=== PATIENT | female | born 1945 | race Two or more races ===

== ENCOUNTER 2020-12-15 18:14 | Emergency (ER) | payer OTHER ==
[~2020-12-15] VITALS: Ht 157.5 cm; Wt 117.5 kg
--- NOTE | 2020-12-15 18:22 | NUR ---
ALVARO RATu From Home "Fell down 10d ago trip/fall-landed R knee/side +Bruising. Pain now worse cant walk". AAO x3. In room air and denies SOB. Respiration regular and unlabored. The patient is attached on a monitor. Warm blanket provided for comfort. Waiting to be seen by
[2020-12-15] MEDS: HYDROCODONE/APAP 10/325MG TABLET PO ONE (19:16)
[2020-12-15] MEDS ORDERED: HYDROCODONE/APAP 10/325MG TABLET ONE (19:16)
[2020-12-15] MEDS ORDERED: DOCU-141 PO (19:17)
[2020-12-15] MEDS ORDERED: TRAM50TA2 PO (19:17)
[2020-12-15 19:48] VITALS: BP 137/78
--- NOTE | 2020-12-15 19:48 | NUR ---
Patient discharged to home in stable condition. Written and verbal after care instructions given. Patient verbalizes understanding of instruction.
== END 2020-12-15 19:48 | disposition home or self-care (01) ==
LOC: ER 18:16
DX: S80.11XA Contusion of right lower leg, initial encounter (principal); M25.461 Effusion, right knee; Z79.01 Long term (current) use of anticoagulants; E66.01 Morbid (severe) obesity due to excess calories; Z68.42 Body mass index [BMI] 45.0-49.9, adult; Z86.718 Personal history of other venous thrombosis and embolism; W18.39XA Other fall on same level, initial encounter; Y93.89 Activity, other specified; Y92.89 Other specified places as the place of occurrence of the external cause; Y99.8 Other external cause status
CPT/HCPCS: 73564-TC; 73590-TC; 93971-TC

== ENCOUNTER 2022-06-24 15:35 | Inpatient (IN) | payer MEDICARE, OTHER ==
[~2022-06-24] VITALS: Ht 162.6 cm; Wt 104.3 kg
[~2022-06-24 15:35] MED LIST: DOCU-141 PO; TRAM50TA2 PO
--- NOTE | 2022-06-24 15:46 | NUR ---
, c/o R knee pain 9/10 ps while in the shower. PLACED ON BED, AAOX4, BREATHING EVEN AND UNLABORED.
--- NOTE | 2022-06-24 16:30 | NUR ---
AT BED SIDE
--- NOTE | 2022-06-24 17:21 | NUR ---
NO SWALLEN NO DIFORMITY
[2022-06-24 17:22] LABS: BASOPHILS % (AUTO) 0.4 % (0.0-2.0); EOSINOPHILS % (AUTO) 1.2 % (0.0-6.0); HEMATOCRIT 41 % (33-45); HEMOGLOBIN 13.5 g/dL (11.5-14.8); LYMPHOCYTES # (AUTO) 1.1 K/uL (0.8-4.8); LYMPHOCYTES % (AUTO) 14.3 % (20.0-44.0); MEAN CORPUSCULAR HGB CONC 33 g/dl (31.0-36.0); MEAN CORPUSCULAR VOLUME 93 fL (82-100); MONOCYTES # (AUTO) 0.6 K/uL (0.1-1.30); MONOCYTES % (AUTO) 8.3 % (2.0-12.0); NEUTROPHILS # (AUTO) 5.7 K/uL (1.8-8.9); NEUTROPHILS % (AUTO) 75.8 % (43.0-81.0); PLATELET COUNT (AUTO) 208 K/uL (150-450); RED BLOOD CELL COUNT(AUTO) 4.38 MIL/uL (4.0-5.2); WHITE BLOOD COUNT (AUTO) 7.5 K/uL (4.3-11.0)
--- NOTE | 2022-06-24 17:22 | NUR ---
RESTING AT THIS TIME NO SOB
[2022-06-24 17:30] LABS: CALCIUM, SERUM 9.2 mg/dL (8.5-10.1); CARBON DIOXIDE 31 mmol/L (21-32); CHLORIDE 99 mmol/L (98-107); CREATININE 1.2 mg/dL (0.6-1.3); GLUCOSE 106 mg/dL (74-106); POTASSIUM 3.8 mmol/L (3.5-5.1); SODIUM SERUM 136 mmol/L (136-145); UREA NITROGEN, BLOOD 16 mg/dL (7-18)
[2022-06-24 17:36] LABS: ALANINE AMINOTRANSFERASE 14 U/L (12-78); ALBUMIN 3.4 g/dL (3.4-5.0); ALKALINE PHOSPHATASE 116 U/L (46-116); ASPARTATE AMINOTRANSFERASE 13 U/L (15-37); BILIRUBIN,DIRECT 0.2 mg/dL (0.0-0.2); BILIRUBIN,TOTAL 0.8 mg/dL (0.2-1.0); TOTAL PROTEIN, SERUM 6.9 g/dL (6.4-8.2)
[2022-06-24] MEDS ORDERED: HYDR25TA4 PO (17:52)
[2022-06-24] MEDS ORDERED: LEVE500T20 PO (17:52)
[2022-06-24] MEDS ORDERED: ASPI-1420 PO (17:52)
[2022-06-24] MEDS ORDERED: CLOP75TA15 PO (17:52)
[2022-06-24] MEDS ORDERED: AMLO-212 PO (17:52)
--- NOTE | 2022-06-24 18:19 | NUR ---
demarcus daly sent to lab
--- NOTE | 2022-06-24 18:45 | NUR ---
rocky on rt leg
--- NOTE | 2022-06-24 19:32 | NUR ---
HAND OFF ANA HUNT
--- NOTE | 2022-06-24 22:02 | NUR ---
PANEL PAGED PER DR FERMIN
[2022-06-24] MEDS ORDERED: MAG HYDROX/AL HYDROX/SIMETH 30 ML UDC PO PRN (23:00)
[2022-06-24] MEDS ORDERED: ENOXAPARIN SODIUM 40 MG/0.4 ML DISP.SYRIN SQ SCH (23:00)
[2022-06-24] MEDS ORDERED: ONDANSETRON HCL/PF 4 MG/2 ML VIAL IVP PRN (23:00)
[2022-06-24] MEDS ORDERED: Z GUARD REMEDY 4 OZ OINT TP PRN (23:00)
[2022-06-24] MEDS ORDERED: ACETAMINOPHEN 325 MG TABLET PO PRN (23:00)
[2022-06-24] MEDS ORDERED: LEVETIRACETAM (250 MG) 250 MG TABLET PO SCH (23:00)
--- NOTE | 2022-06-24 23:56 | NUR ---
ROOM 324-1
--- NOTE | 2022-06-25 00:07 | NUR ---
REPORT GIVEN TO PHILLY
--- NOTE | 2022-06-25 00:46 | NUR ---
PT TRANSPORTED TO ROOM 324 VIA [facility] IN STABLE CONDITION
[2022-06-25 00:55] VITALS: BP 123/77
--- NOTE | 2022-06-25 01:06 | NUR ---
RN NOTES; RECEIVED PT FROM ER WITH VEL IN RM 324-1 AAOX4 ABLE TO MAKE NEEDS KNOWN.TAMAR WELL ON RM AIR SATTING 98%, NO SIGN SOB/DISTRESS NOTED,BREATHING EVEN AND UNLABORED,NO COMPLAINE OF PAIN/DISCOMFORT AT THIS TIME,IV ACCESS ON RAC 18G SL,PT ORIENT THE RM AND VERBALLY UNDERSTANDING.SAFETY MEASURED INPLACE,CALL LIGHT WITHIN REACH,BED LOCKED AND LOW POSITION,WILL CONTINUE TO MONITOR.
[2022-06-25 06:09] LABS: BASOPHILS % (AUTO) 0.6 % (0.0-2.0); EOSINOPHILS % (AUTO) 1.4 % (0.0-6.0); HEMATOCRIT 41 % (33-45); HEMOGLOBIN 13.6 g/dL (11.5-14.8); LYMPHOCYTES # (AUTO) 1.3 K/uL (0.8-4.8); LYMPHOCYTES % (AUTO) 17.4 % (20.0-44.0); MEAN CORPUSCULAR HGB CONC 34 g/dl (31.0-36.0); MEAN CORPUSCULAR VOLUME 92 fL (82-100); MONOCYTES # (AUTO) 0.6 K/uL (0.1-1.30); MONOCYTES % (AUTO) 8.2 % (2.0-12.0); NEUTROPHILS # (AUTO) 5.5 K/uL (1.8-8.9); NEUTROPHILS % (AUTO) 72.4 % (43.0-81.0); PLATELET COUNT (AUTO) 214 K/uL (150-450); RED BLOOD CELL COUNT(AUTO) 4.41 MIL/uL (4.0-5.2); WHITE BLOOD COUNT (AUTO) 7.6 K/uL (4.3-11.0)
--- NOTE | 2022-06-25 06:32 | NUR ---
RN NOTES; PATIENT IN BED AAOX4,TAMAR WELL ON RM AIR NO SIGN SOB/DISTRESS NOTED,BREATHING EVEN AND UNLABORED,ABLE TO MAKE NEEDS KNOWN,DUE MEDS GIVEN ORDER,ALL NEEDS ATTENDED, NO COMPLAINE OF PAIN/DISCOMFORT DURING SHIFT,IV ACCESS ON RAC 18G SL,SAFETY MEASURED INPLACE,CALL LIGHT WITHIN REACH,BED LOCKED AND LOW POSITION,WILL ENDORSED TO NEXT SHIFT.
[2022-06-25 07:15] LABS: CALCIUM, SERUM 9.3 mg/dL (8.5-10.1); CREATININE 1.1 mg/dL (0.6-1.3); MAGNESIUM 2.1 mg/dL (1.8-2.4); PHOSPHORUS 6.9 mg/dL (2.5-4.9); POTASSIUM 3.6 mmol/L (3.5-5.1)
--- NOTE | 2022-06-25 07:30 | NUR ---
PT AOx4, able to express her own concerns. States no pain and no discomfort. Reviewed plan of care with pt and agrees. All safety precautions taken, bed at lowest position, call light and table at bedside. Will continue to monitor throughout shift.
[2022-06-25 08:45] VITALS: BP 134/74
[2022-06-25] MEDS ORDERED: ASPIRIN EC 81 MG TABLET.DR PO SCH (09:00)
[2022-06-25] MEDS ORDERED: HYDROCHLOROTHIAZIDE 25 MG TABLET PO SCH (09:00)
[2022-06-25] MEDS ORDERED: CLOPIDOGREL BISULFATE 75 MG TABLET PO SCH (09:00)
[2022-06-25] MEDS ORDERED: AMLODIPINE BESYLATE 5 MG TABLET PO SCH (09:00)
[2022-06-25] MEDS ORDERED: ENOXAPARIN SODIUM 40 MG/0.4 ML DISP.SYRIN SQ SCH (09:00)
--- NOTE | 2022-06-25 09:32 | NUR ---
WOUND CARE CONSULT: PT AMBULATES TO BATHROOM BUT HAS SOME REDNESS TO LOWER LEGS WITH THICKENED SKIN, PRESENT ON ADMISSION. DR MARADIAGA CALLED FOR DPM CONSULT. IN AGREEMENT WITH PLAN OF CARE.
--- NOTE | 2022-06-25 11:50 | NUR ---
RN, D/C Report. PT AOx4 with family at bedside. Pt able to express her own concerns. Pt gives consent for family to get information regarding stay. Discussed discharge plan and the need to follow up with her PCP within 1 week. Pt and family verbalized understanding. Right arm IV discharge, catheter removed intact. Patient states she is ready for discharge and feeling better than when she came in. No signs of distress, all concerns answered. All precautions taken, pt transferred via wheelchair to [facility]. Paperwork provided to patient, advised to share with her physician. No incidents throughout shift.
[2022-06-25] MEDS ORDERED: AMMONIUM LACTATE 227 GM BOTTLE TP SCH (17:00)
== END 2022-06-25 13:00 | disposition home or self-care (01) | DRG 554 ==
LOC: ER 15:39 → TRANSITION 23:06 → MED 23:57
PROVIDERS: ADMIT Nurse Practitioner Acute Care
DX: M16.11 Unilateral primary osteoarthritis, right hip (principal); D68.59 Other primary thrombophilia; G40.909 Epilepsy, unspecified, not intractable, without status epilepticus; I10 Essential (primary) hypertension; K46.9 Unspecified abdominal hernia without obstruction or gangrene; K80.20 Calculus of gallbladder without cholecystitis without obstruction; Z86.718 Personal history of other venous thrombosis and embolism; Z79.82 Long term (current) use of aspirin; Z79.02 Long term (current) use of antithrombotics/antiplatelets; Z79.899 Other long term (current) drug therapy; E66.01 Morbid (severe) obesity due to excess calories; E78.5 Hyperlipidemia, unspecified; Z79.01 Long term (current) use of anticoagulants; I89.0 Lymphedema, not elsewhere classified; Z98.890 Other specified postprocedural states; L85.3 Xerosis cutis; L30.9 Dermatitis, unspecified
CPT/HCPCS: 36415; 73502; 73552; 73590-TC; 73600-TC; 80048-TC; 80061-TC; 80076-TC; 83735-TC; 84100-TC; 85025-TC; 87081-TC; 93971-TC; 97116-TC; 97530-TC; C9803; G0378; J1650; J2405

== ENCOUNTER 2024-05-28 21:59 | Emergency (ER) | payer OTHER ==
[~2024-05-28] VITALS: Ht 167.6 cm; Wt 104.3 kg
[~2024-05-28 21:59] MED LIST changes: +AMLO-212 PO; +ASPI-1420 PO; +CLOP75TA15 PO; -DOCU-141 PO; +HYDR25TA4 PO; +LEVE500T20 PO; -TRAM50TA2 PO
[2024-05-28] MEDS: IBUPROFEN 400 MG TABLET PO ONE (23:06)
[2024-05-28] MEDS ORDERED: IBUPROFEN 400 MG TABLET ONE (23:06)
[2024-05-28 23:40] VITALS: BP 168/75; TEMP 98.5; O2SAT 94
== END 2024-05-28 23:43 | disposition home or self-care (01) ==
LOC: ER 22:15
DX: M79.605 Pain in left leg (principal); I10 Essential (primary) hypertension; Z79.82 Long term (current) use of aspirin; Z79.891 Long term (current) use of opiate analgesic; Z98.890 Other specified postprocedural states; Z79.899 Other long term (current) drug therapy; Z60.2 Problems related to living alone
CPT/HCPCS: 93970-TC